=== PATIENT | male | born 1965 | race African-American/Black ===

== ENCOUNTER 2017-03-07 15:02 | Emergency (ER) | payer OTHER ==
[~2017-03-07] VITALS: Ht 188 cm; Wt 112.0 kg
[~2017-03-07 15:02] MED LIST: GLU500 PO; GLU5XL PO; NOR5 PO; VITAMIN D32000 I2 PO
[2017-03-07 17:12] LABS: BASOPHIL % 1.2 % (0-2); PLATELET COUNT 195 x10^3mcL (130-400)
[2017-03-07 17:25] LABS: ALBUMIN 4.2 g/dL (3.4-5.0); BILIRUBIN TOTAL 0.6 mg/dL (0.20-1.00); CALCIUM 9.9 mg/dL (8.5-10.1); CARBON DIOXIDE 26.8 mmol/L (21-32); CREATININE SERUM 1.8 mg/dL (0.7-1.3); PHOSPHOROUS 4.9 mg/dL (2.5-4.9); POTASSIUM SERUM 4.6 mmol/L (3.5-5.1); URIC ACID 9.5 mg/dL (3.5-7.2)
[2017-03-07 17:27] LABS: TOTAL PROTEIN, SERUM 9.4 g/dL (6.4-8.2)
[2017-03-07 20:14] VITALS: BP 122/96
== END 2017-03-07 15:17 | disposition home or self-care (01) ==
LOC: ED 15:02
PROVIDERS: Emergency Medicine
DX: E11.65 Type 2 diabetes mellitus with hyperglycemia (principal); Z79.899 Other long term (current) drug therapy
CPT/HCPCS: 82962; 83880; J1815; J7030; Q0092

== ENCOUNTER 2017-10-31 11:26 | Emergency (ER) | payer OTHER ==
[~2017-10-31] VITALS: Ht 188 cm; Wt 123.4 kg
[2017-10-31 12:54] VITALS: Ht 188 cm; Wt 123.4 kg
[2017-10-31 16:45] VITALS: BP 129/92
== END 2017-10-31 16:45 | disposition home or self-care (01) ==
LOC: ED 11:26
DX: J20.9 Acute bronchitis, unspecified (principal); E11.9 Type 2 diabetes mellitus without complications; G89.29 Other chronic pain; M54.9 Dorsalgia, unspecified

== ENCOUNTER 2019-10-07 17:12 | Emergency (ER) | payer OTHER ==
[~2019-10-07] VITALS: Ht 188 cm; Wt 113.4 kg
[2019-10-07 17:41] VITALS: Ht 188 cm; Wt 113.4 kg
[2019-10-07 21:00] LABS: BASOPHIL % 0.4 % (0-2); PLATELET COUNT 230 x10^3mcL (130-400); RED CELL DISTRIBUTION WIDTH 14.2 % (11.5-14.5)
[2019-10-07 21:01] LABS: CALCIUM 8.8 mg/dL (8.5-10.1); CARBON DIOXIDE 29.7 mmol/L (21-32); CHLORIDE SERUM 103 mmol/L (98-107); CREATININE SERUM 1.3 mg/dL (0.7-1.3); GFR1 > 60 mL/min; GLUCOSE SERUM 237 mg/dL (74-106); SODIUM SERUM 140 mmol/L (136-145)
[2019-10-08 05:05] VITALS: BP 127/77
== END 2019-10-07 23:50 | disposition home or self-care (01) ==
LOC: ED 17:12
PROVIDERS: Emergency Medicine
DX: E11.65 Type 2 diabetes mellitus with hyperglycemia (principal); G89.29 Other chronic pain
CPT/HCPCS: 36415; 82962; J7030

== ENCOUNTER 2020-10-31 18:45 | Emergency (ER) | payer OTHER ==
[~2020-10-31] VITALS: Ht 188 cm; Wt 111.1 kg
[2020-10-31 18:57] VITALS: Ht 188 cm; Wt 111.1 kg
[2020-10-31 19:56] LABS: BASOPHIL % 0.2 % (0.2-1.5); PLATELET COUNT 200 x10^3mcL (152-348)
[2020-10-31 21:09] LABS: CALCIUM 9.2 mg/dL (8.5-10.1); CARBON DIOXIDE 21.9 mmol/L (21-32); CREATININE SERUM 1.8 mg/dL (0.7-1.3); POTASSIUM SERUM 4.8 mmol/L (3.5-5.1)
[2020-10-31 21:15] LABS: ALBUMIN 3.2 g/dL (3.4-5.0); BILIRUBIN TOTAL 0.5 mg/dL (0.20-1.00); TOTAL PROTEIN, SERUM 8.7 g/dL (6.4-8.2)
[2020-11-01 10:25] VITALS: BP 103/49
== END 2020-11-01 10:25 | disposition home or self-care (01) ==
LOC: ED 18:45
PROVIDERS: Emergency Medicine
DX: E11.65 Type 2 diabetes mellitus with hyperglycemia (principal)
CPT/HCPCS: 82962; C9113; J1815; J7030